=== PATIENT | female | born 1995 | race Caucasian/White ===

== ENCOUNTER → 2019-02-01 | Outpatient (CLI) | payer OTHER ==
--- NOTE | 2019-02-01 13:52 | REP ---
Clinical: Cervical pain . Technique: AP, lateral, flexion/extension, bilateral oblique, and open-mouth views. Findings: Alignment and lordosis is maintained. There is no evidence for acute fracture / compression injury or subluxation. No significant degenerative changes are appreciated. Oblique views demonstrate patent neural foramen. Open mouth view demonstrates normal C1-C2 articulation and odontoid process. Impression: Normal cervical spine series. Electronically Signed by Bob Estrada MD 02/01/2019 01:43 P
--- NOTE | 2019-02-01 13:55 | REP ---
Clinical: thoracic pain. Technique: AP, lateral, and swimmers views. Findings: Alignment and kyphosis is maintained. Vertebral bodies intact. No acute fracture / compression injury or subluxation. No degenerative changes. Paravertebral soft tissues are normal. Impression: Normal thoracic spine series. The the Electronically Signed by Bob Estrada MD 02/01/2019 01:47 P
--- NOTE | 2019-02-01 14:35 | REP ---
Clinical: Pain . Technique: AP, lateral, bilateral oblique, and coned-down views. Findings: Alignment and lordosis is maintained. The vertebral bodies including transverse process and spinous processes are intact and normal. There is no evidence for acute fracture / compression injury or subluxation. No evidence for spondylolysis or spondylolisthesis. No significant degenerative change is noted. Impression: Normal lumbosacral spine radiograph series. Electronically Signed by Bob Estrada MD 02/01/2019 02:27 P
== END ==
LOC: M LRY 13:00
PROVIDERS: ATTEND Nurse Practitioner Family
DX: M54.6 Pain in thoracic spine (principal); M54.5 Low back pain; M54.2 Cervicalgia

== ENCOUNTER 2019-02-19 11:28 | Emergency (ER) | payer OTHER ==
[2019-02-19] MEDS ORDERED: NS 1,000 ML IV ONE (12:00)
[2019-02-19 12:55] LABS: BASO % 0.3 % (0.0-1.0); EOS # 0.1 10^3/uL (0.0-0.5); EOS % 1.4 % (0.0-3.0); HEMATOCRIT 41.9 % (36.0-47.0); LYMPH # 2.8 10^3/uL (1.5-5.0); LYMPH % 38.8 % (24.0-44.0); MEAN CORPUSCULAR HEMOGLOBIN 28.1 pg (27.0-33.0); MEAN CORPUSCULAR HGB CONC 33.4 g/dl (32.0-36.5); MONO # 0.5 10^3/uL (0.0-0.8); MONO % 6.5 % (0.0-5.0); NEUTROPHILS # 3.8 10^3/uL (1.5-8.5); NEUTROPHILS % 52.7 % (36.0-66.0); PLATELET COUNT, AUTOMATED 252 10^3/uL (150-450); RED BLOOD COUNT 4.99 10^6/uL (4.00-5.40); WHITE BLOOD COUNT 7.3 10^3/uL (4.0-10.0)
[2019-02-19 13:31] LABS: BLOOD UREA NITROGEN 12 MG/DL (7-18); CALCIUM LEVEL 9.5 MG/DL (8.5-10.1); CARBON DIOXIDE LEVEL 24 MEQ/L (21-32); CHLORIDE LEVEL 107 MEQ/L (98-107); CK-MB VALUE MASS < 1.0 NG/ML (<3.6); CPK CREATINE PHOSPHOKINASE 69 U/L (26-192); GLOMERULAR FILTRATION RATE > 60.0 (>60); GLUCOSE, FASTING 77 MG/DL (70-100); HCG, SERUM QUALITATIVE NEGATIVE (NEGATIVE); MB/CK RELATIVE INDEX 1.45 (< OR =4); SODIUM LEVEL 140 MEQ/L (136-145); TROPONIN I < 0.02 NG/ML (< 0.10)
[2019-02-19 14:00] VITALS: BP 94/53
--- NOTE | 2019-02-19 19:45 | ECGEPIP ---
[facility] - ED Test Date: 2019-02-19 Pat Name: ADRIAN STEPHENS Department: Room: - Gender: Female Prospect Manager: : 1995 Requested By: Rosa Wynn Order Number: [id number] Reading MD: Ovidio Laws Measurements Intervals [place] Rate: 78 P: 73 UT: 125 QRS: 68 QRSD: 88 T: 38 QT: 364 QTc: 415 Interpretive Statements SINUS RHYTHM WITH SINUS ARRHYTHMIA NO PRIORS FOR COMPARISON Electronically Signed on 02-19-2019 19:44:41 EST by Ovidio Laws
== END 2019-02-19 14:30 | disposition home or self-care (01) ==
LOC: M ED 11:28
DX: R55 Syncope and collapse (principal)

== ENCOUNTER 2020-01-08 17:38 | Inpatient (IN) | payer OTHER ==
[~2020-01-08] VITALS: Ht 160 cm; Wt 76.2 kg
[2020-01-08] VITALS (14 sets, daily range): BP systolic 111–179; BP diastolic 59–112
[2020-01-08] MEDS ORDERED: GNP28TAB2 PO (18:00)
[2020-01-08] MEDS ORDERED: ACET325C5 PO (18:00)
[2020-01-08 19:08] LABS: APPEARANCE, URINE CLOUDY (CLEAR); BACTERIA, URINE AUTO NEGATIVE (NEGATIVE); BILIRUBIN, URINE AUTO NEGATIVE (NEGATIVE); BLOOD, URINE BLOOD NEGATIVE (NEGATIVE); CALCIUM OXALATE CRYSTALS LARGE; COLOR, URINE YELLOW (YELLOW); GLUCOSE, URINE (UA) AUTO NEGATIVE (NEGATIVE); KETONE, URINE AUTO NEGATIVE (NEGATIVE); LEUKOCYTE ESTERASE, URINE AUTO NEGATIVE (NEGATIVE); MUCUS, URINE MODERATE (NEGATIVE); NITRITE, URINE AUTO NEGATIVE (NEGATIVE); PROTEIN, URINE AUTO 2+ mg/dL (NEGATIVE); RBC, URINE AUTO 2 /HPF (0-3); SPECIFIC GRAVITY URINE AUTO 1.021 (1.002-1.035); SQUAMOUS EPITHELIAL CELL UR AU 17 /HPF (0-6); WBC, URINE AUTO 6 /HPF (0-3)
[2020-01-08 19:10] LABS: HEMATOCRIT 38.1 % (36.0-47.0); HEMOGLOBIN 12.3 g/dl (12.0-15.5); MEAN CORPUSCULAR HEMOGLOBIN 28.8 pg (27.0-33.0); MEAN CORPUSCULAR HGB CONC 32.3 g/dl (32.0-36.5); MEAN CORPUSCULAR VOLUME 89.2 fl (80.0-96.0); PLATELET COUNT, AUTOMATED 235 10^3/uL (150-450); RED BLOOD COUNT 4.27 10^6/uL (4.00-5.40); WHITE BLOOD COUNT 12.5 10^3/uL (4.0-10.0)
[2020-01-08] MEDS ORDERED: LR 500 ML IV ONE (19:15)
[2020-01-08] MEDS ORDERED: ACETAMINOPHEN 500 MG TAB PO ONE (19:15)
[2020-01-08 19:27] LABS: TOTAL PROTEIN,RANDOM URINE 63.9 MG/DL (0.0-12.0)
[2020-01-08 19:29] LABS: ALBUMIN 2.8 GM/DL (3.2-5.2); ALT/SGPT 18 U/L (12-78); BILIRUBIN,TOTAL 0.5 MG/DL (0.2-1.0); BLOOD UREA NITROGEN 8 MG/DL (7-18); CARBON DIOXIDE LEVEL 22 MEQ/L (21-32); CHLORIDE LEVEL 109 MEQ/L (98-107); GLOMERULAR FILTRATION RATE > 60.0 (>60); GLUCOSE, FASTING 96 MG/DL (70-100); POTASSIUM SERUM 3.5 MEQ/L (3.5-5.1); SODIUM LEVEL 140 MEQ/L (136-145); TOTAL PROTEIN 6.1 GM/DL (6.4-8.2); URIC ACID 4.5 MG/DL (2.6-6.0)
[2020-01-08] MEDS ORDERED: PENICILLIN G POTASSIUM IV 5 MU in D5W MINI-BAG PLUS 100 ML IV STA (19:45)
--- NOTE | 2020-01-08 21:51 | HPEPDOC ---
Obstetrical History & Physical General Date of Admission Jan 08, 2020 at 19:26 History of Present Illness @38+5, presenting to triage with SONG and vision changes, irregular cramping, +FM, elevated blood pressure in clinic in the AM Chief Complaint: Gestational Hypertension Information Provided By: Patient Age: 24 : 1 Term: 0 Pre-term: 0 Abortions: 0 Livin Care Care: Good Care Dating Final EDC: Jan 17, 2020 Final EDC for Daily Update: Jan 17, 2020 Final EDC by: LMP LMP: Mar 28, 2019 EGA at Admission: 38 (+5) Antepartum Course Diagnos(e)s GHTN, varicella NI, GBS positive urine Height (inches): 62 Pre- weight (lbs.): 118 Admission Weight (lbs.): 166 Change in Weight (lbs.): 48 Past Medical History Past Obstetrical History : Past Obstetrical History: [employer]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 history Past Medical History Medical History benign breast lump, concussion, broken bone Surgical History: [place] teeth, Other (lumpectomy) Family History Significant Family History: Cancer (PGM), Diabetes (PGM), Hypertension (mother, MGF) Social History Marital Status: Family situation: Spouse/partner home Psychosocial History: No pertinent psych hx * Smoker: non-smoker Alcohol: Denies Drugs: denies Abuse Violence Screening Have you been hit/kicked/slapp: No Have you been sexually assault: No Imunizations Tdap status: current Influenza Status: current Allergies Coded Allergies: No Known Allergies (Unverified , 02/19/19) Medications Scheduled Pnv No.95/Ferrous Fum/Folic AC ( Vitamins Tablet) 1 Each Tablet, 1 TAB PO DAILY Scheduled PRN Acetaminophen (Tylenol) 325 Mg Capsule, 650 MG PO PRN PRN for HEADACHE Physical Examination Physical Examination GENERAL: Alert and oriented times three. BREAST: . ABDOMEN: Gravid and non-tender to touch. FETUS: Is vertex (VTX) by sterile vaginal examination (SVE), fetus is vertex (VTX) by Roland confirmed on ultrasound HEART RATE: Regular rate and rhythm. LUNGS: Clear to auscultation (CTA). EXTREMITIES: No edema. . Vital Signs/I&O Vital Signs Date Time Temp Pulse Resp B/P (MAP) Pulse Ox O2 Delivery O2 Flow Rate FiO2 01/08/20 18:44 98.5 107 18 145/99 (114) 01/08/20 17:58 97 Laboratory Data 24H LABS Laboratory Tests 2 01/08/20 18:48: Urine Color YELLOW, Urine Appearance CLOUDYH, Urine pH 5.0, Urine Specific [place] 1.021, Urine Protein 2+H, Urine Glucose (Auto)(UA) NEGATIVE, Urine Ketones (Auto) NEGATIVE, Urine Blood NEGATIVE, Urine Nitrite NEGATIVE, Urine Bilirubin NEGATIVE, Urine Urobilinogen 2.0H, Urine Leukocyte Esterase (Auto) NEGATIVE, Urine WBC (Auto) 6H, Urine RBC (Auto) 2, Urine Hyaline Casts (Auto) 1, Urine Bacteria (Auto) NEGATIVE, Urine Squamous Epithelial Cells 17, Urine Calcium Oxalate Cryst (Auto) LARGE, Urine Mucus (Auto) MODERATE, Urine Sperm (Auto) , Urine Random Creatinine 231.0, Urine Random Total Protein 63.9H 01/08/20 18:51: Nucleated Red Blood Cells % (auto) 0.0, Anion Gap 9, Glomerular Filtration Rate > 60.0, Uric Acid 4.5, Calcium Level 9.0, Total Bilirubin 0.5, Aspartate Amino Transf (AST/SGOT) 14, Alanine Aminotransferase (ALT/SGPT) 18, Alkaline Phosphatase 158H, Total Protein 6.1L, Albumin 2.8L, Albumin/Globulin Ratio 0.8L 01/08/20 19:39: Serology Scanned Report Hepatitis B Testing CBC/BMP Laboratory Tests 01/08/20 18:51 Pertinent Laboratoy Data Blood Type: O+ RBC Antibody Screen: Negative HIV: Negative Hepatitis B: Negative Rapid Plasma Reagin: Nonreactive Rubella: Immune Varicella: Nonreactive Chlamydia/Gonorrhea: Negative Group B Streptococcus: Positive Glucose Tolerance Test: 118 Anatomy Ultrasound Placenta Location: Anterior Normal Anatomy: Yes Placenta Previa: No Vaginal Examination Dilation: 1cm (cervical catheter placed with exam) Effacement: 50% Station: -3 Cervical Consistency: Medium Cervical Position: Posterior Presentation: Cephalic presentation Assessment Variability: Moderate Accelerations: Positive Decelerations: None Tocometer Frequency: irregular Strength: palpated as mild Multi-drug resistant Organism: No history of MDRO Assessment/Plan Assessment Joslyn is a 24-year-old (G)1 para (P)0 at 38+5 weeks by 6+1-week ultrasound. Presents to Labor and Delivery (L&D) for GHTN IOL Plan Admit and orient. 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 Diet: clear. Group B Streptococcus (GBS) positive. Labs and intravenous (IV) per unit protocol. Counseled on Pitocin and induction of labor (IOL). Lactated Ringers (LR): Bolus at 125 mL/hr. cervical catheter placed and filled to 80/80 monitor for change in or maternal status may medicated for comfort and sleep as desired Anticipate [normal spontaneous delivery ()]. C-S as appropriate. Labor and Delivery Counseling Reviewed consents for blood products, IOL, labor and delivery with expressed understanding. MASSIEL CANADA CNM Jan 08, 2020 21:51
[2020-01-08] MEDS ORDERED: PROMETHAZINE INJ 25 MG/ML VIAL (J2550) IV ONE (22:00)
[2020-01-08] MEDS ORDERED: BUTORPHANOL 2 MG/ML INJ (J0595) IV ONE (22:00)
[2020-01-08] MEDS ORDERED: PENICILLIN G POTASSIUM IV 2.5 MU in IV 1 EA IV SCH (23:45)
[2020-01-09] VITALS (54 sets, daily range): BP systolic 104–146; BP diastolic 57–94
[2020-01-09] MEDS ORDERED: **PENDING PCN ENTRY XX SCH (09:00)
--- NOTE | 2020-01-09 09:40 | IPNPDOC ---
Obstetrical Progress Note Date of Service Jan 09, 2020 Subjective Accepting care of this 24 yo G1@ 38+5 who is being induced for GHTN. She had a DLFB placed last night for cervical ripening. this morning, she has showed and is finishing eating breakfast. her BP has been normotensive overnight and this morning, FHT: 150, Mod vineet,+accels, one variable decel---cat II tracing SVE: Around howard--still in place. [place]: 2-05/07 A/P Latent labor. cat II tracing with one variable decel while checking on the howard. will leave the howard in place and leave the vaginal balloon defleted and put it to tension. after she is done eating, will start pitocin. Anticipate . Objective Vital Signs Date Time Temp Pulse Resp B/P (MAP) Pulse Ox O2 Delivery O2 Flow Rate FiO2 01/09/20 06:25 93 17 120/69 (86) 01/09/20 05:55 98.6 01/09/20 00:50 97 Room Air RIMA REA MD Jan 09, 2020 09:40
[2020-01-09] MEDS ORDERED: OXYTOCIN DRIP 30 UNITS in IV 1 EA IV SCH ×2 (09:45→21:19)
[2020-01-09] MEDS ORDERED: PENICILLIN G POTASSIUM IV 5 MU in D5W MINI-BAG PLUS 100 ML IV STA (14:18)
[2020-01-09 14:26] LABS: HEMOGLOBIN 12.4 g/dl (12.0-15.5); MEAN CORPUSCULAR HGB CONC 32.6 g/dl (32.0-36.5); PLATELET COUNT, AUTOMATED 220 10^3/uL (150-450); RED BLOOD COUNT 4.27 10^6/uL (4.00-5.40); WHITE BLOOD COUNT 16.3 10^3/uL (4.0-10.0)
[2020-01-09] MEDS ORDERED: FENTANYL 2MCG/ML ROPIVACAINE 0.2% IN 0.9% NACL 100ML IVBAG As Ordered ONE (14:33)
--- NOTE | 2020-01-09 15:10 | IPNPDOC ---
Obstetrical Progress Note Date of Service Jan 09, 2020 Subjective Strip note FHT: 150, MOD EAMON, +ACCELS, -Decels--cat I tracing SVE: Gentile out about an hour ago [place]: 3-06/07 a A/P Latent labor. cat I tracing. patient is now asking for epidural will wait until she is comfortable then will go check her and possible AROM if appropriate. Objective Vital Signs Date Time Temp Pulse Resp B/P (MAP) Pulse Ox O2 Delivery O2 Flow Rate FiO2 01/09/20 14:50 96 18 131/80 (97) 01/09/20 13:41 99.1 01/09/20 00:50 97 Room Air RIMA REA MD Jan 09, 2020 15:10
--- NOTE | 2020-01-09 16:22 | IPNPDOC ---
Obstetrical Progress Note Date of Service Jan 09, 2020 Subjective To room for assessment. patient now comfortable with epidural in place FHT: 155, Mod vineet,+accels,-Decels---Cat I tracing SVE: /-1, AROM Clear [place]: 4-07/07, pit at 6 A/P Latent labor, cat I tracing. continue induction with pitocin recheck in 4-6hrs or sooner as indicated. Anticipate Objective Vital Signs Date Time Temp Pulse Resp B/P (MAP) Pulse Ox O2 Delivery O2 Flow Rate FiO2 01/09/20 14:50 96 18 131/80 (97) 01/09/20 13:41 99.1 01/09/20 00:50 97 Room Air RIMA REA MD Jan 09, 2020 16:22
[2020-01-09] MEDS ORDERED: PENICILLIN G POTASSIUM IV 2.5 MU in IV 1 EA IV SCH (18:00)
[2020-01-09] MEDS ORDERED: LR 1,000 ML IV SCH (19:15)
--- NOTE | 2020-01-09 19:42 | IPNPDOC ---
Obstetrical Progress Note Date of Service Jan 09, 2020 Subjective strip note FHT: 155, Mod vineet,+accels, -Decels..cat I tracing [place]: 4-07/07, pit at 10 SVE: Deferred A/P CAT I tracing. continues to be in latent labor. continue pitocin per L&D protocol. Recheck in 4-6hrs or sooner as needed Objective Vital Signs Date Time Temp Pulse Resp B/P (MAP) Pulse Ox O2 Delivery O2 Flow Rate FiO2 01/09/20 18:08 81 18 116/60 (78) 01/09/20 15:15 99.0 01/09/20 00:50 97 Room Air RIMA REA MD Jan 09, 2020 19:42
[2020-01-09] MEDS ORDERED: EPIDURAL/PCA KEYS XX PRN (19:45)
[2020-01-09] MEDS ORDERED: NALOXONE INJ 0.4MG/1ML VIAL (J2310 PER 1MG) IV PRN (19:45)
[2020-01-09] MEDS ORDERED: ONDANSETRON 4MG/2ML VIAL IV PRN (19:45)
[2020-01-09] MEDS ORDERED: LACTATED RINGER'S 1000 ML IV PRN (19:45)
[2020-01-09] MEDS ORDERED: REFRIGERATOR IV KEYS XX PRN (19:45)
[2020-01-09] MEDS ORDERED: FENTANYL/ROPIVACAINE/NACL BAG 100 ML EPIDURAL SCH (19:45)
[2020-01-09] MEDS ORDERED: ePHEDrine SULFATE 25 MG/5 ML(5MG/ML) SYRINGE IV PRN (19:45)
[2020-01-09] MEDS ORDERED: EPIDURAL COMMENT XX SCH (19:45)
[2020-01-09] MEDS ORDERED: diphenhydrAMINE 50MG/ML VIAL (J1200) IV PRN (19:45)
[2020-01-09] MEDS ORDERED: MOM 30ML SUSPENSION UDC PO PRN (21:30)
[2020-01-09] MEDS ORDERED: DIBUCAINE 1% OINTMENT 30GM TOP PRN (21:30)
[2020-01-09] MEDS ORDERED: PROMETHAZINE 25 MG TAB PO PRN (21:30)
[2020-01-09] MEDS ORDERED: ACETAMINOPHEN 500 MG TAB PO PRN (21:30)
[2020-01-09] MEDS ORDERED: ANUSOL HC CREAM 30GM TOP PRN (21:30)
--- NOTE | 2020-01-09 21:32 | DNPDOC ---
[facility] Delivery Note Delivery Note DATE OF DELIVERY: 01/09/2020 PREDELIVERY DIAGNOSIS: 38-6/7 weeks' gestation and induction of labor, Gestational Hypertension. 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 ESTIMATED BLOOD LOSS: 300 mL. FINDINGS: 6 pound 6 ounce female infant, Score 8/8, body cord times one . DELIVERY SUMMARY: Patient is a 24 -year-old 1 now para 1 who was admitted to labor and delivery for Induction of labor for gestational Hypertension she Progressed to complete dilation at and pushed to an at of a live female infant in position AO with restitution to MARLENE . body cord x1, loose wand delivered through. Shoulders were delivered and the corpus immediately followed. was placed on the maternal abdomen, crying and active, mouth and nose bulb suctioned. Cord was clamped x2 and cut by the father of the baby under my direction after 1 minute of delayed cord clamping. Placenta delivered spontaneously and intact by mechanism with a 3 vessel cord at. Uterine hemostasis was achieved with rapid infusion IV pitocin and uterine fundal massage and an additional 1000mcg of cytotec. Perineal and vaginal inspection revealed a left labial abrasion that was hemostatic. EBL 300 mL. At the close of delivery all lap counts, instrument counts, and needle counts were correct and verified. RIMA REA MD Jan 09, 2020 21:27
[2020-01-09] MEDS ORDERED: miSOPROStol 200 MCG TAB (S0191) PR ONE (23:00)
[2020-01-09] MEDS: DOCUSATE SODIUM 100 MG CAP PO PRN (23:58)
--- NOTE | 2020-01-10 06:03 | IPNPDOC ---
Progress Note Date of Service: Jan 10, 2020 Day#: 1 Progress Note SUBJECT: Joslyn is a 24-year-old 1 now Para 1 status post uncomplicated spontaneous vaginal delivery at 38-6/7 weeks' at approximately of a female 6 pounds 6 ounces (2890 grams) with post vaginal laceration and repair, doing well day # 1. She has been ambulating, voiding spontaneously without issue and tolerating regular diet. Breast feeding without issue. Reports lochia is moderate. OBJECTIVE: VITAL SIGNS: Within normal limits, afebrile. Alert and oriented times three. normal work of breathing Heart rate: Regular rate and rhythm Abdomen: Fundus firm at U-2. Soft, NTTP. ASSESSMENT:Joslyn is a 24-year-old 1 now Para 1 status post uncomplicated spontaneous vaginal delivery at 38-6/7 weeks' at approximately of a female 6 pounds 6 ounces (2890 grams) with post vaginal laceration and repair, doing well day # 1. Vitals within normal limits, afebrile, hemodynamically stable with no evidence of infection. PLAN: 1. Discharge to home tomorrow. 2. Tylenol and Motrin for pain. 3. Encourage breast feeding and ambulation. 4.minipill for contraception for now, desires BTL. 5. Routine PP visit in 6 weeks in clinic. 6. Discussed return precautions at length. VS, I&O, 24H, Fishbone Vital Signs/I&O Vital Signs Date Time Temp Pulse Resp B/P (MAP) Pulse Ox O2 Delivery O2 Flow Rate FiO2 01/09/20 23:45 98.7 96 17 140/90 (107) 97 Room Air I&O- Last 24 Hours up to 6 AM 01/10/20 06:00 Intake Total 4092 ml Output Total 2030 ml Balance 2062 ml Laboratory Data 24H LABS Laboratory Tests 2 01/09/20 14:14: Nucleated Red Blood Cells % (auto) 0.0 CBC/BMP Laboratory Tests 01/09/20 14:14 RIMA REA MD Jan 10, 2020 04:56
[2020-01-10 06:05] VITALS: BP 127/70
[2020-01-10] MEDS: FERROUS SULFATE 325MG TAB PO SCH (09:10)
[2020-01-10] MEDS: PRENATAL VITAMINS CHEWABLE TABLET PO SCH (09:11)
[2020-01-10] MEDS: IBUPROFEN 800 MG TAB PO PRN ×2 (09:14→16:01)
[2020-01-11] VITALS (14 sets, daily range): BP systolic 125–162; BP diastolic 63–102
--- NOTE | 2020-01-11 07:40 | IPNPDOC ---
Progress Note Date of Service: Jan 11, 2020 Day#: 2 Progress Note SUBJECT: Joslyn is a 24yo s/p after admission for GHTN doing well PPD #1. Patient reporting onset of severe headache with sitting upright/standing yesterday afternoon. She reports her headache completely resolves with supine position. She has been tolerating a regular diet, voiding spontaneously, and without difficulty. OBJECTIVE: VITAL SIGNS: Noted to have 1 severe-ranging BP with sitting upright with SONG pain, normotensive when laying down with SONG resolved, afebrile. Alert and oriented times three. Abdomen: Fundus firm at U-2. Soft, NTTP. ASSESSMENT: Joslyn is a 24yo s/p after admission for GHTN doing well PPD#1. Vitals within normal limits, afebrile, hemodynamically stable with no evidence of infection. PLAN: 1. Discharge to home tomorrow 2. Tylenol and Motrin for pain. 3. Encourage breast feeding and ambulation. 4. Anesthesia consulted (Dr. Jha) for concern of spinal SONG. 5. Encourage regular diet as tolerated and PO hydration VS, I&O, 24H, Fishbone Vital Signs/I&O Vital Signs Date Time Temp Pulse Resp B/P (MAP) Pulse Ox O2 Delivery O2 Flow Rate FiO2 01/11/20 06:00 98.4 77 18 155/102 (119) 100 Room Air JUVE GALAVIZ DO Jan 11, 2020 07:40
[2020-01-11] MEDS: FERROUS SULFATE 325MG TAB PO SCH (08:35)
[2020-01-11] MEDS: IBUPROFEN 800 MG TAB PO PRN ×2 (08:35→17:25)
[2020-01-11] MEDS: PRENATAL VITAMINS CHEWABLE TABLET PO SCH (08:35)
[2020-01-11 18:46] LABS: HEMATOCRIT 34.9 % (36.0-47.0); HEMOGLOBIN 11.3 g/dl (12.0-15.5); MEAN CORPUSCULAR HGB CONC 32.4 g/dl (32.0-36.5); MEAN CORPUSCULAR VOLUME 89.7 fl (80.0-96.0); PLATELET COUNT, AUTOMATED 233 10^3/uL (150-450); RED BLOOD COUNT 3.89 10^6/uL (4.00-5.40); WHITE BLOOD COUNT 13.6 10^3/uL (4.0-10.0)
[2020-01-11 19:13] LABS: ALT/SGPT 19 U/L (12-78); BILIRUBIN,TOTAL 0.4 MG/DL (0.2-1.0); CREATININE FOR GFR 0.61 MG/DL (0.55-1.30); GLOMERULAR FILTRATION RATE > 60.0 (>60); LDH LACTATE DEHYDROGENASE 239 U/L (84-246); URIC ACID 4.3 MG/DL (2.6-6.0)
[2020-01-11 19:31] LABS: TOTAL PROTEIN,RANDOM URINE 61.3 MG/DL (0.0-12.0)
[2020-01-11] MEDS: MAG Sulf (OBGYN) 20GM/500ML 20,000 MG in IV 1 EA IV SCH (19:47)
[2020-01-11] MEDS ORDERED: MAG Sulf (L&D) 4 GM/100 ML 4 GM in IV 1 EA IV ONE (20:00)
[2020-01-11] MEDS ORDERED: CALCIUM GLUCONATE 1,000 MG in D5W MINI-BAG PLUS 100 ML IV PRN (20:00)
--- NOTE | 2020-01-11 20:08 | IPNPDOC ---
Text Note Date of Service The patient was seen on 01/11/20. NOTE 01/11/201999. 24 yo admitted history headache and visual disturbances diagnosis GHTN. patient IOL had with epidural female 6 lbs 6 oz 8/8. post had spinal headache with mid to severe range blood pressures . Had spinal patch which resolved headache but not resolved blood pressure. redid pre e profile and p/c ratio 0.3 . no headache , reflexes normal no clonus no visual disturbances . Plan of care is 24 hours mgso4, labetalol 200 mg bid a nd review in 24 hours . Patient expressed understanding of plan safe to proceed. VS,Fishbone, I+O VS, Fishbone, I+O Laboratory Tests 01/11/20 18:38 Vital Signs Date Time Temp Pulse Resp B/P (MAP) Pulse Ox O2 Delivery O2 Flow Rate FiO2 01/11/20 19:20 99.4 83 18 143/82 (102) 98 Room Air Jesus Mahajan MD Jan 11, 2020 20:05
[2020-01-11] MEDS: LR 1,000 ML IV SCH (20:43)
--- NOTE | 2020-01-11 20:55 | IPNPDOC ---
Text Note Date of Service The patient was seen on 01/11/20. VS,Fishbone, I+O VS, Fishbone, I+O Laboratory Tests 2 01/11/20 18:38: Nucleated Red Blood Cells % (auto) 0.0, Glomerular Filtration Rate > 60.0, Uric Acid 4.3, Total Bilirubin 0.4, Aspartate Amino Transf (AST/SGOT) 20, Alanine Aminotransferase (ALT/SGPT) 19, Lactate Dehydrogenase 239 01/11/20 19:10: Urine Random Creatinine 198.0, Urine Random Total Protein 61.3H Laboratory Tests 01/11/20 18:38 Vital Signs Date Time Temp Pulse Resp B/P (MAP) Pulse Ox O2 Delivery O2 Flow Rate FiO2 01/11/20 19:20 99.4 83 18 143/82 (102) 98 Room Air Jesus Mahajan MD Jan 11, 2020 20:53
[2020-01-11] MEDS: LABETALOL 200 MG TAB PO SCH (21:33)
[2020-01-12] VITALS (19 sets, daily range): BP systolic 115–142; BP diastolic 66–89
[2020-01-12 06:28] LABS: HEMATOCRIT 30.2 % (36.0-47.0); HEMOGLOBIN 9.8 g/dl (12.0-15.5); MEAN CORPUSCULAR HEMOGLOBIN 29.3 pg (27.0-33.0); MEAN CORPUSCULAR HGB CONC 32.5 g/dl (32.0-36.5); MEAN CORPUSCULAR VOLUME 90.1 fl (80.0-96.0); PLATELET COUNT, AUTOMATED 219 10^3/uL (150-450); RED BLOOD COUNT 3.35 10^6/uL (4.00-5.40); WHITE BLOOD COUNT 10.5 10^3/uL (4.0-10.0)
--- NOTE | 2020-01-12 06:43 | IPNPDOC ---
Text Note Date of Service The patient was seen on 01/12/20. NOTE 01/12/20 0600 am PATIENT DAY 3 WITH HISTORY PRE -E ON MGSO4 AND LABETALOL 200 MG BID . DIURESIS MODERATE OVER 1000 ML LAST 8 HOURS , BP NORMALIZING NO LONGER IN SEVERE RANGE . PLAN CONTINUE MGSO4 , AND BP MEDS ANTICIPATE DISCHARGE TOMORROW ON BP MEDS AND F/UP BP CHECK 48 HOURS IN CLINIC VS,Gudelia, I+O VS, Gudelia, I+O Laboratory Tests 01/11/20 18:38 01/12/20 05:48 Vital Signs Date Time Temp Pulse Resp B/P (MAP) Pulse Ox O2 Delivery O2 Flow Rate FiO2 01/12/20 06:00 79 16 115/66 (82) 01/12/20 05:00 97.9 01/12/20 01:00 Room Air 01/11/20 20:45 98 I&O- Last 24 Hours up to 6 AM 01/12/20 06:00 Intake Total 2530 ml Output Total 1830 ml Balance 700 ml Jesus Mahajan MD Jan 12, 2020 06:43
[2020-01-12] MEDS: MAG Sulf (OBGYN) 20GM/500ML 20,000 MG in IV 1 EA IV SCH (09:00)
[2020-01-12] MEDS: LR 1,000 ML IV SCH ×2 (09:01→11:47)
[2020-01-12] MEDS: LABETALOL 200 MG TAB PO SCH ×2 (11:20→21:02)
[2020-01-12] MEDS: PRENATAL VITAMINS CHEWABLE TABLET PO SCH (11:20)
[2020-01-12] MEDS: FERROUS SULFATE 325MG TAB PO SCH (11:20)
[2020-01-12] MEDS: IBUPROFEN 800 MG TAB PO PRN (15:18)
--- NOTE | 2020-01-12 18:57 | IPNPDOC ---
Obstetrical Progress Note Date of Service Jan 12, 2020 Subjective Pt states feeling well, denies mello, ruq pain Objective Vital Signs Date Time Temp Pulse Resp B/P (MAP) Pulse Ox O2 Delivery O2 Flow Rate FiO2 01/12/20 18:00 76 18 135/82 (99) 100 Room Air 01/12/20 16:00 99.8 Assessment and Plan Additional Comments VSS lungs CTA RRR -clonus, normal reflexes diuresing well 24yo , PP pre eclampsia Saline lock IV, continue labetalol, monitor vital signs and output, monitor for change in status, plan for discharge in AM MASSIEL CANADA CNM Jan 12, 2020 18:57
[2020-01-12] MEDS: DOCUSATE SODIUM 100 MG CAP PO PRN (21:01)
[2020-01-13] VITALS (14 sets, daily range): BP systolic 138–180; BP diastolic 82–101
--- NOTE | 2020-01-13 04:25 | IPNPDOC ---
Subjective Date Seen The patient was seen on 01/13/20. Subjective Chief Complaint/HPI pt denies complaints including SONG, vision changes, RUQ pain Events since last encounter Notified of elevated blood pressure 163/100 by nursing staff. Pt continues to deny headaches, vision changes. Pt last dose of 200mg Labetalol po ordered BID was given at 2100 on 12Jan2020. Assessment /Plan Plan/VTE VTE Prophylaxis Ordered?: Yes (pt using compression boots) Plan Consulted with Dr. Quintana who recommended increase in frequency to TID. Orders edited to increase dosing per instructions. VS, I&O, 24H, Fishbone Vital Signs/I&O Vital Signs Date Time Temp Pulse Resp B/P (MAP) Pulse Ox O2 Delivery O2 Flow Rate FiO2 01/13/20 03:29 155/100 (118) 01/13/20 03:25 88 01/13/20 01:58 98.0 16 99 01/12/20 18:00 Room Air I&O- Last 24 Hours up to 6 AM 01/13/20 06:00 Intake Total 4403 ml Output Total 6035 ml Balance -1632 ml Laboratory Data 24H LABS Laboratory Tests 2 01/12/20 05:48: Nucleated Red Blood Cells % (auto) 0.0, Magnesium Level 4.7*H CBC/BMP Laboratory Tests 01/12/20 05:48 MASSIEL CANADA CNM Jan 13, 2020 04:25
[2020-01-13] MEDS ORDERED: LABETALOL 200 MG TAB PO SCH ×2 (04:30→21:00)
[2020-01-13] MEDS ORDERED: LABETALOL 100MG/20ML VIAL IV STA (04:36)
--- NOTE | 2020-01-13 04:44 | IPNPDOC ---
Subjective Date Seen The patient was seen on 01/13/20. Subjective Chief Complaint/HPI increased blood pressure Assessment /Plan Assessment BP at time of po labetalol 180/101 Plan/VTE VTE Prophylaxis Ordered?: Yes (pt using compression boots) Plan Reported increased blood pressures to Dr. Quintana. IV labetalol ordered 20mg iv x1, follow protocol for increasing dose logarithm 20/40/80/80 until BP is under 160/100 20mg iv labetalol ordered x1, recheck bp per protocol VS, I&O[facility]O Vital Signs Date Time Temp Pulse Resp B/P (MAP) Pulse Ox O2 Delivery O2 Flow Rate FiO2 01/13/20 04:30 98 180/101 (127) 01/13/20 01:58 98.0 16 99 01/12/20 18:00 Room Air I&O- Last 24 Hours up to 6 AM 01/13/20 06:00 Intake Total 4403 ml Output Total 6035 ml Balance -1632 ml Laboratory Data 24H LABS Laboratory Tests 2 01/12/20 05:48: Nucleated Red Blood Cells % (auto) 0.0, Magnesium Level 4.7*H CBC/BMP Laboratory Tests 01/12/20 05:48 MASSIEL CANADA CNM Jan 13, 2020 04:44
--- NOTE | 2020-01-13 07:25 | IPNPDOC ---
Progress Note Date of Service: Jan 13, 2020 Day#: 4 Progress Note SUBJECT: Joslyn is a 24-year-old 1 now Para 1 status post uncomplicated spontaneous vaginal delivery at 38+6 weeks' on 09Jan2020 of a female 6 pounds 6 ounces with post vaginal laceration and repair, doing well day # 4. She has been ambulating, voiding spontaneously without issue and tolerating regular diet. Breast feeding without issue. Reports lochia is normal. Patient is ambulating well. Reports some cramping with . Denies any pain. Voiding and stooling without difficulty. OBJECTIVE: VITAL SIGNS: bp 142/99. Alert and oriented times three. Breath sounds clear to auscultation. Heart rate: Regular rate and rhythm, no murmurs, rubs or gallops. Abdomen: Fundus firm at U-2. Soft, NTTP. [Minimal] lochia. Breasts filling, nipples intact. ASSESSMENT: Joslyn is a 24-year-old 1 now Para 1 status post uncomplicated spontaneous vaginal delivery after IOL for GHTN, delivered 38+6 weeks', and day 4. Afebrile, hemodynamically stable with no evidence of infection. BP improved on labetalol PLAN: 1. Monitor blood pressure on labetalol. 2. Tylenol and Motrin for pain. 3. Encourage breast feeding and ambulation. 4. Plan to return for B/P check in clinic at 3 days post discharge. 6. Discussed signs of worsening blood pressure. VS, I&O, 24H, Fishbone Vital Signs/I&O Vital Signs Date Time Temp Pulse Resp B/P (MAP) Pulse Ox O2 Delivery O2 Flow Rate FiO2 01/13/20 06:03 94 16 142/99 (113) Room Air 01/13/20 01:58 98.0 99 I&O- Last 24 Hours up to 6 AM 01/13/20 06:00 Intake Total 4403 ml Output Total 6035 ml Balance -1632 ml MASSIEL CANADA CNM Jan 13, 2020 07:25
[2020-01-13] MEDS: PRENATAL VITAMINS CHEWABLE TABLET PO SCH (08:04)
[2020-01-13] MEDS: FERROUS SULFATE 325MG TAB PO SCH (08:05)
[2020-01-13] MEDS: NIFEdipine 30 MG XL TAB PO SCH (11:01)
[2020-01-13] MEDS ORDERED: NIFEdipine 10 MG CAP PO STA (14:18)
[2020-01-13] MEDS ORDERED: LABETALOL 200 MG TAB PO ONE (14:30)
[2020-01-13] MEDS ORDERED: LABETALOL 100 MG TAB PO ONE (14:30)
[2020-01-13] MEDS: LABETALOL 100 MG TAB PO SCH (20:51)
[2020-01-14 02:00] VITALS: BP 142/88
[2020-01-14 06:00] VITALS: BP 136/84
--- NOTE | 2020-01-14 06:38 | IPNPDOC ---
Progress Note Date of Service: Jan 14, 2020 Day#: 5 Progress Note Joslyn is a 24-year-old 1 now Para 1 status post spontaneous vaginal delivery at 38+6 weeks' on 09Jan2020 of a female 6 pounds 6 ounces with post vaginal laceration and repair, doing well day # 5. She developed preeclampsia with severe features and has received 23hours of magnesium ( Off on 01/13/2020 in the morning). She has been ambulating, voiding spontaneously without issue and tolerating regular diet. Breast feeding without issue. Reports lochia is normal. Patient is ambulating well. Reports some cramping with . Denies any pain. Voiding and stooling without difficulty. 24hrs event: Patient has severe range BP yesterday around 1400. she received a dose of 10mg PO procardia immediate release, which brought her pressures to mild range. her Labetalol was increased to 300mg TIB and she is also naking 30mg of Adalat qam. Her pressures since that change has been in the low mild range. patient denies any other s/s of worsening preeclampsia, anemia or infection. OBJECTIVE: VITAL SIGNS: bp reviewed and are in the 130-140'S/90'S. Alert and oriented times three. Normal work of breathing. Heart rate: Regular rate and rhythm Abdomen: Fundus firm at U-2. Soft, NTTP.. ASSESSMENT: Joslyn is a 24-year-old 1 now Para 1 status post uncomplicated spontaneous vaginal delivery after IOL for GHTN, delivered 38+6 weeks' and developed preeclampsia with severe features, received 23hrs of magnesium therapy and has been monitored closed for 24hrs. this is day 5. Afebrile, hemodynamically stable with no evidence of infection. BP now stable on 300mg of labetalol TIB and 30mg of adalat QAM. no s/s of worsening pree PLAN: 1. Discharge home today 2. Tylenol and Motrin for pain, Adalat and labetalol for BP control for 6weeks 3. Encourage breast feeding and ambulation. 4. Plan to return for B/P check in clinic at 3 days post discharge ( on ). 5. minipill Contraception 6. Discussed signs of worsening blood pressure. VS, I&O, 24H, Fishbone Vital Signs/I&O Vital Signs Date Time Temp Pulse Resp B/P (MAP) Pulse Ox O2 Delivery O2 Flow Rate FiO2 01/14/20 02:00 98.8 80 16 142/88 (106) 96 01/13/20 22:00 Room Air RIMA REA MD Jan 14, 2020 05:48
[2020-01-14] MEDS ORDERED: IBUP80TA PO (06:49)
[2020-01-14] MEDS ORDERED: DOCU100C16 PO (06:49)
[2020-01-14] MEDS ORDERED: ACET-683 PO (06:49)
[2020-01-14] MEDS ORDERED: NIFE30TA50 PO (06:49)
[2020-01-14] MEDS ORDERED: LABE10TAB PO (06:49)
[2020-01-14] MEDS: LABETALOL 100 MG TAB PO SCH (08:44)
[2020-01-14] MEDS: FERROUS SULFATE 325MG TAB PO SCH (08:44)
[2020-01-14 08:45] VITALS: BP 140/88
[2020-01-14] MEDS: PRENATAL VITAMINS CHEWABLE TABLET PO SCH (08:45)
[2020-01-14] MEDS: NIFEdipine 30 MG XL TAB PO SCH (08:45)
[2020-01-14 09:45] VITALS: BP 140/88
== END 2020-01-14 09:15 | disposition home or self-care (01) | DRG 807 ==
LOC: M LDO 17:38 → M LDI 19:26 → M OBS 01-09 23:45
PROVIDERS: ADMIT Registered Nurse; ATTEND Obstetrics & Gynecology
PROC: 3E033VJ Introduction of Other Hormone into Peripheral Vein, Percutaneous Approach (ICD-10-PCS; 2020-01-08)
PROC: 10E0XZZ Delivery of Products of Conception, External Approach (ICD-10-PCS; principal; 2020-01-09)
PROC: 10907ZC Drainage of Amniotic Fluid, Therapeutic from Products of Conception, Via Natural or Artificial Opening (ICD-10-PCS; 2020-01-09)
PROC: 3E0S3GC Introduction of Other Therapeutic Substance into Epidural Space, Percutaneous Approach (ICD-10-PCS; 2020-01-11)
DX: O13.4 Gestational [pregnancy-induced] hypertension without significant proteinuria, complicating childbirth (principal); Z37.0 Single live birth; Z3A.38 38 weeks gestation of pregnancy; O99.824 Streptococcus B carrier state complicating childbirth; O69.82X0 Labor and delivery complicated by other cord entanglement, without compression, not applicable or unspecified; O14.15 Severe pre-eclampsia, complicating the puerperium